=== PATIENT | female | born 1940 | race Caucasian/White ===

== ENCOUNTER → 2017-12-05 | Outpatient (CLI) | payer MEDICARE, BC ==
--- NOTE | 2017-12-05 14:35 | MM ---
Reason for exam: additional evaluation requested from abnormal screening. Last mammogram was performed 1 month ago. History: Patient is postmenopausal. Benign left mammotome panel of the left breast, September 17, 2012. Benign left mammotome panel of the left breast, September 17, 2012. Benign right mammotome panel of the right breast, September 10, 2010. Benign left mammotome panel of the left breast, July 02, 2007. Benign left mammotome panel of the left breast, July 02, 2007. Benign stereotactic core biopsy of the left breast, March 11, 2002. Took hormonal contraceptives for 1 year. Physical Findings: Nurse did not find any significant physical abnormalities on exam. MG 3D Work Up W/Cad LT CC with magnification, ML with magnification, and ML view(s) were taken of the left breast. Prior study comparison: November 07, 2017, bilateral MG 3d screening mammo w/cad. October 18, 2016, bilateral MG 3d screening mammo w/cad. The breast tissue is heterogeneously dense. This may lower the sensitivity of mammography. Finding: There are indeterminate grouped/clustered calcifications in the upper outer quadrant of the left breast. There is a chronic nodularity in the left breast. These results were verbally communicated with the patient and result sheet given to the patient on 12/05/17. ASSESSMENT: Suspicious, BI-RAD 4 RECOMMENDATION: Surgical consultation and stereotactic core biopsy of the left breast. Patient would like to talk to family before booking biopsy or may call Dr. Barragan to book biopsy. PRELIMINARY REPORT CALLED AND FAXED TO DR. BARRAGAN ON 12/05/17.
== END | disposition home or self-care (01) ==
LOC: RADMAMWWP 13:07
PROVIDERS: ATTEND Internal Medicine
DX: R92.8 Other abnormal and inconclusive findings on diagnostic imaging of breast (principal)
CPT/HCPCS: 77065; G0279

== ENCOUNTER → 2017-12-19 | Day surgery (SDC) | payer MEDICARE, BC ==
[2017-12-19 09:35] VITALS: TEMP 99.6; BMI 32.8
[2017-12-19 11:41] VITALS: BP 146/82; PULSE 87; RESP 16
--- NOTE | 2017-12-26 13:04 | MM ---
Stereotactic Mammotome core biopsy left breast. HISTORY: Indeterminate microcalcifications left breast The microcalcifications in question within the left breast were targeted by the undersigned. Procedure was performed by the undersigned. Informed consent was obtained and all of the patients questions were answered. The standard sterile technique was utilized and appropriate local anesthesia was obtained with 1% licocaine. Mammotome probe was advanced and multiple core samples were obtained and sent to pathology for interpretation. Microclip marker was deployed at the site of biopsy. Post procedural mammogram demonstrates appropriate deployment of radiopaque clip marker. The patient tolerated the procedure well and left the department in stable condition. Pathology results are pending. IMPRESSION: Successful stereotactic core biopsy left breast with pathology results pending. 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 FOREIGN BODY REACTION TO NON-REFRACTILE MATERIAL AND HEMOSIDERIN-LIKE PIGMENT DEPOSITION SUGGESTIVE OF PREVIOUS BIOPSY RELATED CHANGES. Recommendation Follow up mammogram of the left breast in 6 months. DEMETRI
== END ==
LOC: RADMAMWWP 09:01
PROVIDERS: ATTEND Surgery
DX: N60.32 Fibrosclerosis of left breast (principal); R92.1 Mammographic calcification found on diagnostic imaging of breast; N62 Hypertrophy of breast
CPT/HCPCS: 88305; 19081; A4648; J2001

== ENCOUNTER → 2018-06-19 | Outpatient (CLI) | payer MEDICARE, BC ==
--- NOTE | 2018-06-19 11:49 | MM ---
Reason for exam: follow-up at short interval from prior study. Last mammogram was performed 6 months ago. History: Patient is postmenopausal. Benign MG stereo VAD BX LT of the left breast, December 19, 2017. Benign left mammotome panel of the left breast, September 17, 2012. Benign left mammotome panel of the left breast, September 17, 2012. Benign right mammotome panel of the right breast, September 10, 2010. Benign left mammotome panel of the left breast, July 02, 2007. Benign left mammotome panel of the left breast, July 02, 2007. Benign stereotactic core biopsy of the left breast, March 11, 2002. Took hormonal contraceptives for 1 year. Physical Findings: Nurse did not find any significant physical abnormalities on exam. MG 3D Diag Mammo W/Cad LT CC and MLO view(s) were taken of the left breast. Prior study comparison: December 05, 2017, left breast MG 3d work up w/cad LT. November 07, 2017, bilateral MG 3d screening mammo w/cad. The breast tissue is heterogeneously dense. This may lower the sensitivity of mammography. Benign calcifications in the left breast. No suspicious abnormality. Multiple left breast biopsy markers noted. These results were verbally communicated with the patient and result sheet given to the patient on 06/19/18. ASSESSMENT: Benign, BI-RAD 2 RECOMMENDATION: Return to routine screening mammogram schedule for both breasts. Back on schedule.
== END | disposition home or self-care (01) ==
LOC: RADMAMWWP 09:11
PROVIDERS: ATTEND Surgery
DX: R92.8 Other abnormal and inconclusive findings on diagnostic imaging of breast (principal)
CPT/HCPCS: 77065; G0279; 77061